=== PATIENT | female | born 1935 | race Caucasian/White ===

== ENCOUNTER → 2017-10-29 | Day surgery (SDC) | payer OTHER ==
[~2017-10-29] VITALS: Ht 160 cm; Wt 71.7 kg
[~2017-10-29] MED LIST: ASPIRIN ADULT L81 M2; CILOSTAZOL100 M1 PO; CLOPIDOGREL75 M1 PO; FISH OIL 1,0001 EAC1 PO; FISH OIL CONC1000 MG; GUAIFENESIN-COD10 ML PO; HEPARIN-1/25000 UNIT IV; HYDROXYCHLOROQ200 M2 PO; HYDROXYZINE50 MG PO; LISINOPRIL40 MG PO; MEDROL DOSEPAK1 PAC PO; METOPROLOL TART25 M1 PO; MULTIVITAMINS1 EAC9 PO; NITROSTAT0.3 M1 SL; PERCOCET MONOGRA5 MG PO; PLETAL PO; PLETAL50 MG; PREDNISONE10 M2 PO; PROAIR HFA8.5 GM INH; TESSALON PERLE100 M1 PO; TOPROL XL 12.12.5 MG; VALSARTAN160 M1 PO; VALTREX1 GM PO; VIBRAMYCIN100 MG PO; VYTORIN 10 MG-41 TAB; VYTORIN 10-401 EACH PO; ZETIA10 M1 PO; ZITHROMAX250 M2 PO; ZOCOR20 M1 PO
--- NOTE | 2017-10-29 08:54 | MAMMOGRAPHY REPORT ---
PROCEDURE: EXAMINATION: US GUIDED NEEDLE LOCALIZATION BREAST, RIGHT CLINICAL INFORMATION: Right breast mucinous adenocarcinoma. Preoperative localization. COMPARISON: Ultrasound guided biopsy and post procedure mammogram dated 09/28/2017. TECHNIQUE NEEDLE LOC: Proper informed consent is obtained from the patient after discussion of the procedure, potential risks and complications, and alternatives including declining the procedure today. Patient was given an opportunity for questions. The patient appeared to understand. The patient consented to the procedure and signed the consent form. GUIDANCE: Ultrasound. APPROACH: Lateral. TARGET: Biopsy-proven 1.5 x 1.3 x 1.0 cm irregularly marginated and macrolobulated mass in the right breast 12:00, 2 cm from the nipple. ANESTHESIA: 10 mL Xylocaine 2% LOCALIZATION MARKER: [facility] 5 cm needle localization system. The skin was prepped and local anesthesia administered. The needle was positioned and position assessed with ultrasound. The wire was hooked into position. The patient tolerated the procedure well and had no immediate complication. Postprocedure 2 view mammogram of the right breast was performed. Diagram was marked for the surgeon. The target is located around the thick segment of the wire, 3 cm deep to the skin with 8.5 cm of the wire remaining external to the skin. IMPRESSION: Status post right breast needle localization with wire hooked into position. The target is located around the thick segment of the wire, 3 cm deep to the skin with 8.5 cm of the wire remaining external to the skin.
--- NOTE | 2017-10-29 11:24 | Operative Report ---
Operative/Inv Procedure Report Surgery Date: 10/29/17 Name of Procedure: Right partial mastectomy with wire localization and sentinel lymph node biopsy Pre-Operative Diagnosis: Right Breast cancer Post-Operative Diagnosis: Same Estimated Blood Loss: less than 50ml Surgeon/Multigrapher: Jeannie Dalal MD Anesthesia: laryngeal mask airway Specimens: Right partial mastectomy, cranial margin, caudal margin, medial margin, lateral margin, deep margin, sentinel lymph node Operative/Procedure Note Note: Patient has invasive breast cancer diagnosed on needle biopsy. Clinical stage I. She is brought to the operating room for partial mastectomy and sentinel lymph node biopsy. Preoperative wire localization and lymphoscintigraphy were performed and those films were reviewed. She is brought to the operating room and given 2 g of Ancef. Anesthesia was administered and the right breast was prepped and draped in a sterile fashion. 3 mL of methylene blue diluted with 2 mL of saline was injected in the retroareolar fashion. Local anesthesia 1% lidocaine exception Marcaine was given. The axilla was approached first. A transverse incision was made in the lower axilla. Subcutaneous and is tissue was dissected and the axilla was explored. There was a single hot, blue lymph node identified. There were no other hot, blue, or palpable lymph nodes in the axilla. Hemostasis adequate and the deep tissue was approximated using interrupted Vicryl sutures. The breast was then approached. The periareolar incision was made and the wire was brought into the incision. The area of concern was grasped using an Allis clamp and dissected using electrocautery. The specimen was removed and marked for orientation and margin map. Intraoperative x-ray confirmed the presence of the clip in specimen. Additional margins were taken in the cranial, caudal, medial, lateral, and deep positions. Hemostasis was adequate. A 3 x 1 x 2 BioSorb Marker was placed in the lumpectomy cavity and fastened to the edges of the breast tissue using Maxon sutures. Vicryl sutures were used to fasten the breast tissue over the Marker area both skin incisions were closed using a running Biosyn subcuticular stitch. Steri-Strips and sterile dressings were applied and the patient was transferred to the recovery room in satisfactory condition having tolerated the procedure well.
--- NOTE | 2017-10-29 19:37 | MAMMOGRAPHY REPORT ---
EXAMINATION: MM NEEDLE LOCALIZATION SPECIMEN FROM THE BREAST, RIGHT CLINICAL INDICATION: Specimen radiograph. COMPARISON: Preoperative needle localization study from earlier today. TECHNIQUE: Single radiograph of the specimen was obtained. FINDINGS: The radiograph of the excised surgical specimen shows that the hookwire is delivered intact and the marker clip and mass are identified in the specimen. IMPRESSION: Satisfactory excision of the targeted lesion. These findings were communicated to the surgeon in the OR at the time of specimen radiography.
== END ==
LOC: STS 01:37
DX: C50.811 Malignant neoplasm of overlapping sites of right female breast (principal); Z17.0 Estrogen receptor positive status [ER+]; I10 Essential (primary) hypertension; I25.810 Atherosclerosis of coronary artery bypass graft(s) without angina pectoris; D86.0 Sarcoidosis of lung; Z87.891 Personal history of nicotine dependence; Z86.79 Personal history of other diseases of the circulatory system
CPT/HCPCS: 76942; 77065-RT; C9728; J0131; J0690; J1100; J1885; J2001; J2405; Q9968

== ENCOUNTER → 2017-11-26 | Day surgery (SDC) | payer OTHER ==
[~2017-11-26] VITALS: Ht 160 cm; Wt 71.7 kg
--- NOTE | 2017-11-26 13:13 | Operative Report ---
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 Margins on the lumpectomy were negative, however there was DCIS present in the lateral margin. She is brought for reexcision of lateral margin. Patient brought to the operating room and placed under anesthesia. 2 g of Ancef was given and the right breast for was prepped and draped sterile fashion using ChloraPrep. Local anesthesia of 1% lidocaine mixed with half percent Marcaine was given for anesthesia. The previous periareolar incision was reopened. The lumpectomy cavity was entered and the BioSorb Marker was removed. The cavity was explored and the lateral margin was excised widely. The specimen was marked for orientation and hemostasis was achieved using electrocautery. The BioSorb Marker was replaced and fastens in 4 points using Maxon sutures. The breast tissue was reapproximated using interrupted Vicryl sutures and skin was closed using a running Biosyn subcutaneous color stitch. Steri-Strips and sterile dressings were applied and patient transferred to the recovery room in satisfactory condition having tolerated the procedure well.
== END ==
LOC: STS 01:04
DX: D05.11 Intraductal carcinoma in situ of right breast (principal); D86.0 Sarcoidosis of lung; I10 Essential (primary) hypertension; I25.810 Atherosclerosis of coronary artery bypass graft(s) without angina pectoris; E11.8 Type 2 diabetes mellitus with unspecified complications; Z79.84 Long term (current) use of oral hypoglycemic drugs; Z87.891 Personal history of nicotine dependence; G47.33 Obstructive sleep apnea (adult) (pediatric)
CPT/HCPCS: J0690; J2250; J3490